=== PATIENT | female | born 1985 | race Caucasian/White ===

== ENCOUNTER 2021-11-09 04:22 | Inpatient (IN) ==
[2021-11-09] MEDS ORDERED: Buffered Lidocaine 1% SYRIN 1 ml INTRADERM ONE (07:25)
[2021-11-09] MEDS ORDERED: Lactated Ringers 1000 ml BAG 1,000 ML IV ONE (07:25)
[2021-11-09] MEDS ORDERED: Lactated Ringers 1000 ml BAG 1,000 ML IV SCH (08:00)
[2021-11-09 08:34] LABS: Urine Benzodiazepine Screen None Detected (None Detect); Urine Cannabinoids Screen None Detected (None Detect); Urine Opiates Screen None Detected (None Detect)
[2021-11-09] MEDS ORDERED: Dibucaine 1% OINT 28.35 GM TUBE PR PRN (14:32)
[2021-11-09] MEDS ORDERED: Witch Hazel PAD JAR TOPICAL PRN (14:32)
[2021-11-09] MEDS ORDERED: Glycerin ADULT 2.4 gm SUPP PR PRN (14:32)
[2021-11-10 06:19] LABS: ABS Basophils 0.1 10^3/ul (0-0.2); ABS Lymphocytes 1.9 10^3/ul (1.0-4.8); ABS Monocytes 0.8 10^3/ul (0-0.8); ABS Neutrophils 12.6 10^3/ul (1.5-7.7); Eosinophil % 0.3 %; Hematocrit 30 % (35-47); Hemoglobin 9.8 g/dL (12.0-16.0); Lymphocyte % 12.2 %; Mean Corpuscular HGB Conc 33 g/dL (31-36); Mean Corpuscular Hemoglobin 24 pg (27-31); Mean Corpuscular Volume 75 fL (80-97); Mean Platelet Volume 8.2 fL (7.4-10.4); Platelet Count 177 10^3/uL (150-450); Red Blood Count 4.01 10^6 /uL (3.70-4.87); Red Cell Distribution Width 17 % (10-15); White Blood Count 15.4 10^3/uL (3.5-10.8)
[2021-11-10 12:50] VITALS: BP 106/75
== END 2021-11-10 16:05 | disposition home or self-care (01) | DRG 560 ==
LOC: MCHOBOUT 04:22 → MCHOB 07:14
PROVIDERS: ADMIT Midwife; ATTEND Midwife